=== PATIENT | male | born 1990 | race Two or more races ===

== ENCOUNTER 2017-06-07 22:38 | Emergency (ER) | payer OTHER ==
[~2017-06-07] VITALS: Ht 172.7 cm; Wt 77.3 kg
[2017-06-07 22:41] VITALS: BP 138/80
[2017-06-07] MEDS ORDERED: HYDROcodone/APAP 5/325 TABLET PO STA (22:52)
[2017-06-07] MEDS ORDERED: HYDROcodone/APAP 5/325 TABLET ONE (23:18)
== END 2017-06-08 00:52 | disposition home or self-care (01) ==
LOC: ED 06-08 00:24
DX: S80.02XA Contusion of left knee, initial encounter (principal); Y04.0XXA Assault by unarmed brawl or fight, initial encounter; Y93.89 Activity, other specified; Y92.328 Other athletic field as the place of occurrence of the external cause; Y99.8 Other external cause status
CPT/HCPCS: 99284